=== PATIENT | male | born 1935 | race Caucasian/White ===

== ENCOUNTER 2018-02-28 08:11 | Emergency (ER) | payer OTHER ==
--- NOTE | 2018-02-28 09:02 | RAD REPORT ---
EXAM DESCRIPTION: CT - Head Brain Wo Cont - 02/28/2018 8:54 am CLINICAL HISTORY: Weakness, abnormal potassium, leg weakness COMPARISON: CT study January 25, 2017 TECHNIQUE: Axial 5 mm thick images of the head were obtained without IV contrast. All CT scans are performed using dose optimization technique as appropriate and may include automated exposure control or mA/KV adjustment according to patient size. FINDINGS: No intracranial hemorrhage, mass, edema or shift of mid-line structures. No acute cortical based infarction. Patient has moderate severity atrophy and chronic ischemic change not substantiall y different from the examination 1 year earlier. No cortical edema or sulcal effacement. No abnormal extra-axial fluid collections. Ventricular size is in proportion to the amount of volume loss. Mastoid air cells and visualized portions of the paranasal sinuses are clear. No acute bony findings. IMPRESSION: Prominent atrophy and chronic ischemic change similar to comparison. No acute intracranial finding seen.
[2018-02-28 09:58] LABS: Albumin 3.3 g/dL (3.2-5.5); Bilirubin Direct 0.1 mg/dL (0-0.2); Bilirubin Total 0.4 mg/dL (0.3-1.2); Magnesium 1.9 mg/dL (1.8-2.5); Protein, Total 6.3 g/dL (6.0-8.3)
[2018-02-28 10:06] LABS: Potassium 5.9 mEq/L (3.6-5.0)
[2018-02-28 10:10] LABS: Absolute Lymphocytes (CBC) 1.1 K/uL (0.7-4.9); Absolute Monocytes 0.5 K/uL (0.1-1.3); Absolute Neutrophil 4.8 K/uL (1.8-8.0); Basophils % 1.2 % (0-1.3); Eosinophils % 2.3 % (0-4.4); Hematocrit 39.1 % (39.6-49.0); Lymphocytes % 16.2 % (15.3-44.8); MCH 31.8 pg (27.0-35.0); MCV 95.3 fL (80-100); MPV 9.5 fL (7.6-11.3); Monocytes % 7.8 % (3.3-12.3)
[2018-02-28 10:12] LABS: Protime INR 0.99
--- NOTE | 2018-02-28 10:18 | RAD REPORT ---
EXAM DESCRIPTION: RAD - Chest Single View - 02/28/2018 9:03 am CLINICAL HISTORY: Leg weakness, shortness of breath COMPARISON: December 2016 TECHNIQUE: AP portable chest image was obtained 0851 hours . FINDINGS: No focal mass, consolidation or failure. Fibrotic lung changes are present. Upper lobe emp hysematous changes are present. Pattern is not substantially different from comparison. Trachea is mi dline. Heart and vasculature are normal. No measurable pleural effusion and no pneumothorax. No gross bony abnormality seen. No acute aortic findings suspected. 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 No acute finding confirmed.
[2018-02-28] MEDS ORDERED: FUROSEMIDE 20 MG/ 2ML VIAL ONE (10:41)
[2018-02-28] MEDS ORDERED: INSULIN -REGULAR HUMAN 50 UNIT/0.5 ML ML ONE (10:42)
[2018-02-28] MEDS ORDERED: ALBUTEROL 2.5 MG/3 ML NEB SOL ONE (10:42)
[2018-02-28] MEDS ORDERED: SOD POLYSTYREN SUL 15 GM/60 ML UCUP ONE (10:42)
[2018-02-28] MEDS ORDERED: D50W 25 GM/50 ML SYRINGE IV ONE (10:43)
[2018-02-28] MEDS ORDERED: Calcium Gluconate 9.3 mEq (=2gm)/NS 100 mL IVPB IV ONE ×2 (11:00)
--- NOTE | 2018-02-28 11:08 | ER ---
Nurse's Notes [facility] Name: Issa Hardy Age: 82 yrs Sex: Male : 1935 Arrival Date: 02/28/2018 Time: 08:17 Bed 7 Private MD: Diagnosis: Hyperkalemia;Hypertensive heart disease;Weakness-General;Unspecified kidney failure Presentation: 02/28 08:19 Presenting complaint: Patient states: Dr. Frank sent me over here because my potassium ch was high and my blood pressure is high. I feel puny for the past two years or so. Transition of care: patient was not received from another setting of care. Onset of symptoms was February 28, 2018 at 08:20. Initial Sepsis Screen: Does the patient meet any 2 criteria? No. Patient's initial sepsis screen is negative. Does the patient have a suspected source of infection? No. Patient's initial sepsis screen is negative. Care prior to arrival: None. 08:19 Method Of Arrival: Ambulatory 08:19 Acuity: FARA 2 ch Triage Assessment: 08:22 General: Appears in no apparent distress. comfortable, Behavior is calm, cooperative, ch appropriate for age. Pain: Denies pain. Neuro: Level of Consciousness is awake, alert, obeys commands, Oriented to person, place, time, situation, Appropriate for age. Historical: - Allergies: 08:22 NKA; ch - Home Meds: 08:22 amlodipine 5 mg tab 1 tab once daily [Active]; glimepiride 4 mg Oral tab 1 tab once ch daily [Active]; metoprolol succinate 100 mg oral Tb24 1 tab once daily [Active]; "other medications unknown" [Active]; - PMHx: 08:22 Bladder cancer; Diabetes - NIDDM; Hypertension; Renal Disease; ch - PSHx: 08:22 bladder and prostate sx; toe nail; ch - Immunization history:: Adult Immunizations up to date, Flu vaccine is not up to date. - Social history:: Smoking status: Patient uses tobacco products, smokes one pack cigarettes per day. Patient uses alcohol, occasionally. Patient/guardian denies using street drugs. Screenin:45 Abuse screen: Denies threats or abuse. Denies injuries from another. Nutritional sg screening: No deficits noted. Tuberculosis screening: No symptoms or risk factors identified. Never had TB. Fall Risk None identified. Assessment: 10:14 Reassessment: pt at the nurses station requesting an update, updated on lab results, sg informed pt we need a urine specimen, pt stated understanding, pt requesting to speak with Cornelius SWEENEY about labs and test results, informed pt that the PA has been notified and will come update them on the results. 10:51 Reassessment: pt outside ED lobby at this time with family member. Reassessment: pt sg requesting to go outside at this time, pt would like to smoke, pt educated on nonsmoking campus, pt stated understanding, Cornelius SWEENEY at bedside evaluating pt at this time, updating pt and pt family on POC. 11:00 Reassessment: Patient appears in no apparent distress at this time. Patient and/or sg family updated on plan of care and expected duration. Pain level reassessed. pt stated " I dont like the way my brown stuff taste at home, but i like this." Pt educated on mixing Kayexelate with diet sprite or whatever he would like to drink, just avoid high sugar d/t diabetes and no orange juice d/t elevating Potassium. 11:44 Reassessment: Cornelius SWEENEY at bedside updating pt on POC and need for admit, pt stated he sg understands but would not like to stay in the hospital for treatment, pt to be informed of AMA, and signatures obtained. 14:06 Reassessment: pt cleaned of incontinence of stool, BMx3 noted, Cornelius SWEENEY notified, sg awaiting repeat potassium results at this time. pt stated he would still like to leave [place] but will wait for the results of the repeat Potassium. Vital Signs: 08:22 BP 173 / 60; Pulse 88; Resp 22; Temp 97.6; Pulse Ox 97% on R/A; Weight 95.71 kg; Height 5 ft. 10 in. (177.80 cm); Pain 0/10; 10:00 BP 166 / 60; Pulse 87; Resp 20; Pulse Ox 98% on R/A; Pain 0/10; sg 11:23 BP 212 / 81; Pulse 91; Resp 20; Pulse Ox 99% on Nebulizer Mask; bm6 08:22 Body Mass Index 30.28 (95.71 kg, 177.80 cm) ED Course: 08:17 Patient arrived in ED. sb2 08:20 Triage completed. ch 08:22 Arm band placed on left wrist. Patient placed in an exam room, on a stretcher. ch 08:26 Xiang Sood PA is PHCP. cp 08:26 Usha Astorga MD is Attending Physician. cp 08:50 Wil Villasenor, RN is Primary Nurse. sg 08:[address] via stretcher. sg 08:53 CT completed. Patient tolerated procedure well. Patient moved to CT via stretcher. sj Patient moved to radiology Patient moved back from CT. 08:54 CT Head Brain wo Cont In Process Unspecified. EDMS 09:00 X-ray completed. Portable x-ray completed in exam room. Patient tolerated procedure jb2 well. 09:00 Patient moved back from radiology. jb2 09:01 XRAY Chest (1 view) In Process Unspecified. EDMS 09:13 EKG done, by security systems technician. reviewed by Xiang SWEENEY. vh 10:07 Notified Nurse Practitioner and/or Physician Track Vehicle Repairer of a critical lab result(s), dm5 Potassium 5.9. 11:06 Roger Crandall MD is Hospitalizing Provider. cp 11:48 Quintin Arambula MD is Referral Physician. cp Administered Medications: 11:00 Drug: Albuterol 2.5 mg Route: Inhalation; sg 11:00 Drug: Albuterol 2.5 mg Route: Inhalation; sg 11:00 Drug: Albuterol 2.5 mg Route: Inhalation; sg 11:00 Drug: Insulin Regular Human 10 units {Co-Signature: ss (Hanna Mcallister RN).} Route: IVP; sg Site: left antecubital; 11:00 Drug: D50W 25 ml Route: IVP; Site: left antecubital; sg 11:00 Drug: Kayexalate 45 grams Route: PO; sg 11:00 Drug: Lasix 20 mg Route: IVP; Site: left antecubital; sg 11:17 Drug: Calcium Gluconate 2 grams Route: IVPB; Infused Over: 60 mins; Site: left sg antecubital; Outcome: 11:07 Decision to Hospitalize by Provider. cp 15:07 Patient left the ED. ss Signatures: Dispatcher [employer] [facility] Hilda Dorman RN RN Irina Bajwa RN RN dm5 Wil Villasenor, RN RN sg Elise, Jonathon jb2 Dia Malave, Hanna, LANE RN ss Stefanie Moreira Corey, PA PA cp Murray, Brett 6 Concepcion Zamudio sb2 Hanna Mcallister RN ss
--- NOTE | 2018-02-28 11:08 | EDPHYS ---
Physician Documentation [facility] Name: Issa Hardy Age: 82 yrs Sex: Male : 1935 Arrival Date: 02/28/2018 Time: 08:17 Bed 7 Private MD: ED Physician Usha Astorga HPI: 02/28 08:40 This 82 yrs old Male presents to ER via Ambulatory with complaints of High cp Blood Pressure, HIGH POTASSIUM LEVELS. 08:40 The patient has elevated blood pressure and discovered this at home. cp 08:40 Onset: The symptoms/episode began/occurred gradually. Associated signs and symptoms: cp Pertinent positives: general weakness, Pertinent negatives: chest pain, dizziness, headache, vomiting. Severity of symptoms: in the emergency department the blood pressure is unchanged, despite home interventions. The patient has experienced similar episodes in the past, a few times. Patient also reports he was referred to Ed by DR Stone for elevated serum potassium. Historical: - Allergies: 08:22 NKA; ch - Home Meds: 08:22 amlodipine 5 mg tab 1 tab once daily [Active]; glimepiride 4 mg Oral tab 1 tab once ch daily [Active]; metoprolol succinate 100 mg oral Tb24 1 tab once daily [Active]; "other medications unknown" [Active]; - PMHx: 08:22 Bladder cancer; Diabetes - NIDDM; Hypertension; Renal Disease; ch - PSHx: 08:22 bladder and prostate sx; toe nail; ch - Immunization history:: Adult Immunizations up to date, Flu vaccine is not up to date. - Social history:: Smoking status: Patient uses tobacco products, smokes one pack cigarettes per day. Patient uses alcohol, occasionally. Patient/guardian denies using street drugs. ROS: 08:45 Constitutional: Negative for body aches, chills, fever, poor PO intake. cp 08:45 Eyes: Negative for injury, pain, redness, and discharge. cp 08:45 ENT: Negative for drainage from ear(s), ear pain, sore throat, difficulty swallowing, difficulty handling secretions. 08:45 Cardiovascular: Negative for chest pain, edema, palpitations. 08:45 Respiratory: Negative for cough, shortness of breath, wheezing. 08:45 Abdomen/GI: Negative for abdominal pain, nausea, vomiting, and diarrhea, constipation, anorexia, black/tarry stool, rectal bleeding. 08:45 Back: Negative for pain at rest, pain with movement, radiated pain. 08:45 Skin: Negative for cellulitis, rash. 08:45 Neuro: Positive for general weakness, Negative for altered mental status, headache, syncope, near syncope. 08:45 All other systems are negative. Exam: 08:40 ECG was reviewed by the Attending Physician. cp 08:50 Constitutional: The patient appears in no acute distress, alert, awake, cp non-diaphoretic, non-toxic, well developed, well nourished. 08:50 Head/Face: Normocephalic, atraumatic. cp 08:50 Eyes: Periorbital structures: appear normal, Pupils: equal, round, and reactive to light and accomodation, Extraocular movements: intact throughout, Conjunctiva: normal, no exudate, no injection, Sclera: no appreciated abnormality, Lids and lashes: appear normal, bilaterally. 08:50 ENT: External ear(s): are unremarkable, Ear canal(s): are normal, clear, TM's: bulging, is not appreciated, bilaterally, dullness, bilaterally, erythema, is not appreciated, bilaterally, Nose: is normal, Mouth: Lips: moist, Oral mucosa: pink and intact, moist, Posterior pharynx: Airway: no evidence of obstruction, patent, Tonsils: are normal in appearance, Uvula: midline, non-edematous, no erythema, swelling, is not appreciated, erythema, is not appreciated, exudate, is not appreciated. 08:50 Neck: ROM/movement: is normal, is supple, without pain, no range of motions limitations, no nuchal rigidity. 08:50 Chest/axilla: Inspection: normal, Palpation: is normal, no crepitus, no tenderness. 08:50 Cardiovascular: Rate: normal, Rhythm: regular, Pulses: Pulses are 2+ in right radial artery and left radial artery. JVD: is not appreciated. 08:50 Respiratory: the patient does not display signs of respiratory distress, Respirations: normal, no use of accessory muscles, no retractions, no splinting, no tachypnea, labored breathing, is not present, Breath sounds: are clear throughout, no decreased breath sounds, no stridor, no wheezing. 08:50 Abdomen/GI: Inspection: abdomen appears normal, Bowel sounds: active, all quadrants, Palpation: abdomen is soft and non-tender, in all quadrants, rebound tenderness, is not appreciated, voluntary guarding, is not appreciated, involuntary guarding, is not appreciated. Vital Signs: 08:22 BP 173 / 60; Pulse 88; Resp 22; Temp 97.6; Pulse Ox 97% on R/A; Weight 95.71 kg; Height ch 5 ft. 10 in. (177.80 cm); Pain 0/10; 10:00 BP 166 / 60; Pulse 87; Resp 20; Pulse Ox 98% on R/A; Pain 0/10; sg 11:23 BP 212 / 81; Pulse 91; Resp 20; Pulse Ox 99% on Nebulizer Mask; bm6 08:22 Body Mass Index 30.28 (95.71 kg, 177.80 cm) ch MDM: 08:26 Patient medically screened. cp 10:50 Physician consultation: Roger Crandall MD was called at 10:50, was contacted at 10:50, cp regarding admission, to the telemetry unit. patient's condition. 11:48 Data reviewed: vital signs, nurses notes, lab test result(s), EKG, radiologic studies, cp CT scan. 11:48 Refusal of service: The patient/guardian displays adequate decision making capability cp and despite a detailed discussion of alternatives, benefits, risks, and consequences refuses: Admission to the hospital for further work-up and treatment. 02/28 08:43 Order name: Basic Metabolic Panel; Complete Time: 10:10 02/28 10:18 Interpretation: Normal except: GLUC 285; K 5.9; BUN 58; CRE 2.16; GFR 29. cp 02/28 08:43 Order name: BNP; Complete Time: 10:44 cp 02/28 10:44 Interpretation: Abnormal: BNP 532. cp 02/28 08:43 Order name: CBC with Diff; Complete Time: 10:10 02/28 10:11 Interpretation: Normal except: RBC 4.10; HGB 13.0; HCT 39.1. cp 02/28 08:43 Order name: Ckmb; Complete Time: 10:10 cp 02/28 08:43 Order name: CPK; Complete Time: 10:10 02/28 08:43 Order name: LFT's; Complete Time: 10:10 02/28 08:43 Order name: Magnesium; Complete Time: 10:10 02/28 08:43 Order name: PT-INR; Complete Time: 10:18 02/28 08:43 Order name: Ptt, Activated; Complete Time: 10:18 02/28 08:43 Order name: Troponin (emerg Dept Use Only); Complete Time: 10:02 02/28 10:02 Interpretation: Reviewed. 02/28 11:15 Order name: CBC with Automated Diff [facility] 02/28 11:15 Order name: Comprehensive Metabolic Panel [facility] 02/28 08:34 Order name: EKG; Complete Time: 08:35 02/28 08:34 Order name: EKG - Nurse/Tech; Complete Time: 10:23 02/28 08:43 Order name: XRAY Chest (1 view); Complete Time: 10:23 02/28 08:43 Order name: Cardiac monitoring; Complete Time: 10:22 02/28 08:43 Order name: CT Head Brain wo Cont; Complete Time: 09:31 02/28 09:31 Interpretation: Report reviewed. 02/28 11:15 Order name: CONS Physician Consult [facility] 02/28 11:15 Order name: Physical Therapy Consult [facility] 02/28 11:15 Order name: Renal [facility] 02/28 11:15 Order name: Potassium [facility] 02/28 14:05 Order name: Urine Dipstick--Ancillary (enter results) ag 02/28 08:43 Order name: IV Saline Lock; Complete Time: 10:22 02/28 08:43 Order name: Labs collected and sent; Complete Time: 10:22 02/28 08:43 Order name: O2 Per Protocol; Complete Time: 10:22 02/28 08:43 Order name: O2 Sat Monitoring; Complete Time: 10:22 cp EC:40 Rate is 50 beats/min. Rhythm is regular. [place] interval is normal. QRS interval is normal. cp QT interval is normal. No ST changes noted. Interpreted by me. Reviewed by me. Administered Medications: 11:00 Drug: Albuterol 2.5 mg Route: Inhalation; sg 11:00 Drug: Albuterol 2.5 mg Route: Inhalation; sg 11:00 Drug: Albuterol 2.5 mg Route: Inhalation; sg 11:00 Drug: Insulin Regular Human 10 units {Co-Signature: ss (Hanna Mcallister RN).} Route: IVP; sg Site: left antecubital; 11:00 Drug: D50W 25 ml Route: IVP; Site: left antecubital; sg 11:00 Drug: Kayexalate 45 grams Route: PO; sg 11:00 Drug: Lasix 20 mg Route: IVP; Site: left antecubital; sg 11:17 Drug: Calcium Gluconate 2 grams Route: IVPB; Infused Over: 60 mins; Site: left sg antecubital; Disposition: 02/28/18 11:49 Patient has left against medical advice. Impression: Hyperkalemia, Hypertensive heart disease, Weakness - General, Unspecified kidney failure. - Patients states they are going to Home. - Condition is Fair. - Discharge Instructions: Hyperkalemia, Weakness, How to Take Your Blood Pressure, [id number], Managing Your High Blood Pressure. Follow up: Quintin Arambula MD; When: Tomorrow; Reason: Recheck today's complaints. - Problem is new. - Symptoms are unchanged. Addendum: 03/05/2018 19:53 Co-signature as Attending Physician, Usha Astorga MD. m a2 Signatures: Dispatcher [employer] EDHilda Madrigal RN RN Wil Villasenor RN RN sg Smirch, Shelby, RN RN ss Xiang Sood PA PA cp Alzahri, Mohammad, MD MD tn2 Hanna Mcallister RN Corrections: (The following items were deleted from the chart) 02/28 11:46 11:07 Hospitalization Ordered by Roger Crandall MD for Observation. Preliminary diagnosis cp is HyperkalemiaWeakness - General; Unspecified kidney failure. Bed requested for Telemetry/MedSurg (observation). Status is Observation. Condition is Stable. Problem is new. Symptoms are unchanged. UTI on Admission? No. cp 11:51 11:49 02/28/2018 11:49 Patients has left against medical advice. Impression: cp Hyperkalemia; Hypertensive heart disease; Weakness - General. Patient states they are going to Home. Condition is Fair. Follow up: Quintin Arambula; When: Tomorrow; Reason: Recheck today's complaints. Problem is new. Symptoms are unchanged. cp 15:07 11:51 02/28/2018 11:49 Patients has left against medical advice. Impression: ss Hyperkalemia; Hypertensive heart disease; Weakness - General; Unspecified kidney failure. Patient states they are going to Home. Condition is Fair. Discharge Instructions: Hyperkalemia, Weakness, How to Take Your Blood Pressure, [id number], Managing Your High Blood Pressure. Follow up: Quintin Arambula; When: Tomorrow; Reason: Recheck today's complaints. Problem is new. Symptoms are unchanged. cp
[2018-02-28] MEDS ORDERED: ACETAMINOPHEN 500 MG TAB PO PRN (11:11)
[2018-02-28] MEDS ORDERED: ONDANSETRON 4 MG/2 ML VIAL IV PRN (11:11)
[2018-02-28] MEDS ORDERED: NA CHLORIDE 0.9% 1,000 ML IV SCH (12:00)
--- NOTE | 2018-02-28 14:37 | EKG ---
Test Date: 2018-02-28 Test Time: 08:34:22 Rn Wellness: HEIDY MEASUREMENT RESULTS: Intervals: Rate: 50 WY: 132 QRSD: 100 QT: 420 QTc: 382 Floral: P: 17 WY: 132 QRS: -40 T: 66 INTERPRETIVE STATEMENTS: Sinus bradycardia with premature atrial complexes Left axis deviation Voltage criteria for left ventricular hypertrophy Nonspecific ST and T wave abnormality Abnormal ECG Compared to ECG 01/25/2017 13:55:41 Atrial premature complex(es) now present Left-axis deviation now present Left ventricular hypertrophy now present ST (T wave) deviation now present Sinus rhythm no longer present Myocardial infarct finding no longer present Electronically Signed On 02-28-18 14:34:09 CDT by Darian Camacho
[2018-02-28 15:17] VITALS: TEMP 97.6
[2018-02-28 15:19] VITALS: BP 212/81; O2SAT 99
[2018-02-28 16:09] LABS: Urine Blood 2+ (NEG); Urine Glucose NEGATIVE (NEG); Urine Protein 3+ (NEG)
--- NOTE | 2018-02-28 16:24 | P.CNS ---
Date of Consult: 02/28/18 Assess to see the patient regarding admission however patient decided to sign out AMA. He was counseled against leaving however did not wish to stay understands the risks and signed out Patient is an 82-year-old male with past medical history of chronic kidney disease was thought to have hyperkalemia at the nephrologists office. Patient was supposed to be direct admitted yesterday however declined to come into the hospital. Patient came into the ER today found have a potassium of 5.9. Patient was treated I was contacted for admission patient was seen and examined however he decided to leave against medical advice. physical exam General awake alert oriented x3, obese elderly male CV S1-S2 no murmurs Respiratory moving air well bilaterally no wheezing Gastrointestinal abdomen soft nontender nondistended positive bowel sounds Extremities no clubbing cyanosis edema Neuro nonfocal
== END 2018-02-28 15:07 | disposition left against medical advice (07) ==
LOC: ER 08:11 → ERHOLD 11:12 → UNDOADMOB 11:12 → ER 15:07
DX: E87.5 Hyperkalemia (principal); I13.10 Hypertensive heart and chronic kidney disease without heart failure, with stage 1 through stage 4 chronic kidney disease, or unspecified chronic kidney disease; N19 Unspecified kidney failure; E11.22 Type 2 diabetes mellitus with diabetic chronic kidney disease; Z72.0 Tobacco use; Z85.51 Personal history of malignant neoplasm of bladder
CPT/HCPCS: 36415; 70450; 71045; 80048; 80076; 81003; 82550; 82553; 83735; 83880; 84132; 84484; 85025; 85610; 85730; 93005; J0610; J1940; 96374; 96375; 99284